=== PATIENT | female | born 1990 | race Two or more races ===

== ENCOUNTER 2018-05-21 20:25 | Emergency (ER) | payer OTHER ==
[2018-05-21 20:32] VITALS: BP 118/62; PULSE 100; TEMP 98.9; BMI 28.3
[2018-05-21] MEDS ORDERED: IBUPROFEN 600 MG TABLET (FP) PO ONE ×2 (20:51→20:55)
--- NOTE | 2018-05-21 20:56 | PDOC ---
History of Present Illness - General Chief Complaint: Sore Throat Stated Complaint: SORE THROAT Time Seen by Provider: 05/21/18 20:43 History Source: Patient Exam Limitations: No Limitations - History of Present Illness Initial Comments: 05/21/18 20:54 27 yr female with c/o sore throat fever one day. neg nvd neg sick contacts. Severity: mild Past History - Past Medical History Allergies/Adverse Reactions: Allergies Allergy/AdvReac Type Severity Reaction Status Date / Time No Known Allergies Allergy Verified 05/21/18 20:58 Home Medications: Ambulatory Orders NK [No Known Home Medication] 10/02/14 Cardiac Disorders: Yes (HEAR MURMUR) COPD: No - Suicide/Smoking/Psychosocial Hx Smoking History: Never smoked Have you smoked in the past 12 months: No Number of Cigarettes Smoked Daily: 0 Hx Alcohol Use: Yes (SOCIAL) Review of Systems - Review of Systems Able to Perform ROS?: Yes Is the patient limited Dominican proficient: No Constitutional: No: Symptoms Reported HEENTM: Yes: Throat Pain *Physical Exam - Vital Signs Last Vital Signs Temp Pulse Resp BP Pulse Ox 98.9 F 100 H 18 118/62 98 05/21/18 20:30 05/21/18 20:30 05/21/18 20:30 05/21/18 20:30 05/21/18 20:30 - Physical Exam General Appearance: Yes: Nourished, Appropriately Dressed HEENT: positive: EOMI, FARTUN, TMs Normal, Pharyngeal Erythema. negative: Tonsillar Exudate, Tonsillar Erythema Neck: positive: Supple. negative: Tender Respiratory/Chest: positive: Lungs Clear, Normal Breath Sounds. negative: Chest Tender Cardiovascular: positive: Regular Rhythm, Regular Rate Gastrointestinal/Abdominal: positive: Normal Bowel Sounds, Soft Musculoskeletal: positive: Normal Inspection Extremity: positive: Normal Capillary Refill, Normal Inspection, Normal Range of Motion Integumentary: positive: Normal Color, Dry, Warm Neurologic: positive: Fully Oriented, Alert, Normal Mood/Affect, Normal Response , Motor Strength 5/5 Moderate Sedation - Procedure Monitoring Vital Signs: Procedure Monitoring Vital Signs Temperature 98.9 F 05/21/18 20:30 Pulse Rate 100 H 05/21/18 20:30 Respiratory Rate 18 05/21/18 20:30 Blood Pressure 118/62 05/21/18 20:30 O2 Sat by Pulse Oximetry (%) 98 05/21/18 20:30 Medical Decision Making - Medical Decision Making 05/21/18 20:54 cc: sore throat , fever today took dayquil earlier. will check for strep motrin now for pain no abd pain neg lymphadenopathy tolerating fluids well 05/21/18 21:13 *DC/Admit/Observation/Transfer Diagnosis at time of Disposition: Pharyngitis Qualifiers: Pharyngitis/tonsillitis etiology: unspecified etiology Qualified Code(s): J02.9 - Acute pharyngitis, unspecified - Discharge Dispostion Disposition: HOME Condition at time of disposition: Good - Referrals - Patient Instructions Printed Discharge Instructions: DI for Viral Pharyngitis Additional Instructions: gargle with warm salt water 4-5 times a day ice pops, gingerale, pleanty of fluids give ibuprofen every 8hrs for pain or fever any throat lozenger of your choice throat sprays for pain tea with honey and lemon follow up with your doctor if any worsening symptoms - Post Discharge Activity
== END 2018-05-21 21:32 | disposition home or self-care (01) ==
LOC: JERFT 20:25
DX: J02.9 Acute pharyngitis, unspecified (principal)
CPT/HCPCS: 87070; 87880; 99281-25

== ENCOUNTER 2018-05-27 12:32 | Emergency (ER) | payer OTHER ==
[2018-05-27 12:41] VITALS: BP 124/60; PULSE 75; TEMP 98.1; BMI 25.7
--- NOTE | 2018-05-27 13:39 | PDOC ---
History of Present Illness - General Chief Complaint: Cold Symptoms Stated Complaint: COLD SYMPTOMS, dx Flu Friday Time Seen by Provider: 05/27/18 13:01 History Source: Patient Exam Limitations: Clinical Condition - History of Present Illness Initial Comments: 05/27/18 13:40 Patient with no significant past medical history present with complaint of five- day history of nasal congestion, runny nose, sinus pain and body aches. Patient denies fever or chills. She was seen 5 days ago for symptoms and emergency room and rapid strep and throat culture done was negative. Patient denies any other symptoms. Timing/Duration: other (5 days) Past History - Past Medical History Allergies/Adverse Reactions: Allergies Allergy/AdvReac Type Severity Reaction Status Date / Time No Known Allergies Allergy Verified 05/27/18 12:41 Home Medications: Ambulatory Orders Ipratropium Como 2 spray NS BID PRN #1 spray 05/27/18 Loratadine 10 mg PO DAILY #10 capsule 05/27/18 Methylprednisolone [Medrol Dose Abran] 4 mg PO ASDIR #21 tablet 05/27/18 Cardiac Disorders: Yes (HEAR MURMUR) COPD: No - Suicide/Smoking/Psychosocial Hx Smoking History: Never smoked Have you smoked in the past 12 months: No Number of Cigarettes Smoked Daily: 0 Information on smoking cessation initiated: No Hx Alcohol Use: No Drug/Substance Use Hx: No Review of Systems - Review of Systems Able to Perform ROS?: Yes Is the patient limited Swazi proficient: No Constitutional: Yes: Malaise. No: Fever HEENTM: Yes: Symptoms Reported, See HPI, Nose Congestion. No: Eye Pain, Blurred Vision, Tearing, Recent change in vision, Double Vision, Cataracts, Ear Pain, Ocular Prothesis, Ear Discharge, Nose Pain, Tinnitus, Nose Bleeding, Hearing Loss, Throat Pain, Throat Swelling, Mouth Pain, Dental Problems, Difficulty Swallowing, Mouth Swelling, Other Respiratory: Yes: Symptoms reported, See HPI, Cough (intermittent). No: Orthopnea, Shortness of Breath, SOB with Exertion, SOB at Rest, Stridor, Wheezing, Productive cough, Hemoptysis, Other Cardiac (ROS): No: Symptoms Reported, See HPI, Chest Pain, Edema, Irregular Heart Rate, Lightheadedness, Palpitations, Syncope, Chest Tightness, Other ABD/GI: No: Constipated, Diarrhea, Nausea, Vomiting All Other Systems: Reviewed and Negative *Physical Exam - Vital Signs Last Vital Signs Temp Pulse Resp BP Pulse Ox 98.1 F 75 19 124/60 96 05/27/18 12:39 05/27/18 12:39 05/27/18 12:39 05/27/18 12:39 05/27/18 12:39 - Physical Exam Comments: 05/27/18 13:42 GENERAL: Well developed, well nourished. Awake and alert. No acute distress. HEENT: Normocephalic, atraumatic. PERRLA, EOMI. No conjunctival pallor. Sclera are non-icteric. Moist mucous membranes. Oropharynx is clear. NECK: Supple. Full ROM. CARDIOVASCULAR: Regular rate and rhythm. No murmurs, rubs, or gallops. Distal pulses are 2+ and symmetric. PULMONARY: No evidence of respiratory distress. Lungs clear to auscultation bilaterally. No wheezing, rales or rhonchi. ABDOMINAL: Soft. Non-tender. Non-distended. No rebound or guarding. No organomegaly. Normoactive bowel sounds. MUSCULOSKELETAL Normal range of motion at all joints. SKIN: Warm and dry. Normal capillary refill. No rashes. No jaundice. NEUROLOGICAL: Alert, awake, appropriate. Gait is normal without ataxia. PSYCHIATRIC: Cooperative. Good eye contact. Appropriate mood General Appearance: Yes: Nourished, Appropriately Dressed. No: Apparent Distress Moderate Sedation - Procedure Monitoring Vital Signs: Procedure Monitoring Vital Signs Temperature 98.1 F 05/27/18 12:39 Pulse Rate 75 05/27/18 12:39 Respiratory Rate 19 05/27/18 12:39 Blood Pressure 124/60 05/27/18 12:39 O2 Sat by Pulse Oximetry (%) 96 05/27/18 12:39 Medical Decision Making - Medical Decision Making 05/27/18 13:42 Patient with no significant past medical history present with complaint of five- day history of URI symptoms and malaise. Patient seen in 5 days ago for symptoms and diagnosed with viral syndrome. Rapid strep test not done today due to patient already having symptoms for 5 days and will not exchange engineer. Patient is stable for outpatient treatment for URI with viral syndrome and PCP follow-up. *DC/Admit/Observation/Transfer Diagnosis at time of Disposition: Malaise URI (upper respiratory infection) Qualifiers: URI type: unspecified viral URI Qualified Code(s): J06.9 - Acute upper respiratory infection, unspecified Sinusitis Qualifiers: Sinusitis location: unspecified location Chronicity: acute Recurrence: non- recurrent Qualified Code(s): J01.90 - Acute sinusitis, unspecified - Discharge Dispostion Disposition: HOME Condition at time of disposition: Stable Decision to Admit order: No - Prescriptions Prescriptions: Ipratropium Como 2 spray NS BID PRN #1 spray PRN Reason: nasal congestion Loratadine 10 mg PO DAILY #10 capsule Methylprednisolone [Medrol Dose Abran] 4 mg PO ASDIR #21 tablet - Referrals Referrals: Halie Putnam [Primary Care Provider] - - Patient Instructions Printed Discharge Instructions: DI for Viral Upper Respiratory Infection -- Adult Additional Instructions: Take medications as prescribed. Increase fluid intake. Follow-up with primary care - Post Discharge Activity
== END 2018-05-27 13:43 | disposition home or self-care (01) ==
LOC: JERFT 12:32
DX: J01.90 Acute sinusitis, unspecified (principal); J06.9 Acute upper respiratory infection, unspecified; R53.81 Other malaise
CPT/HCPCS: 99281-25

== ENCOUNTER 2019-02-19 18:14 | Emergency (ER) | payer OTHER ==
[2019-02-19 18:41] VITALS: BP 113/75; PULSE 89; TEMP 98.3; BMI 29.2
--- NOTE | 2019-02-19 19:29 | PDOC ---
History of Present Illness - General Chief Complaint: Sore Throat Stated Complaint: SORE THROAT Time Seen by Provider: 02/19/19 18:56 History Source: Patient - History of Present Illness Timing/Duration: reports: this morning Past History - Past Medical History Allergies/Adverse Reactions: Allergies Allergy/AdvReac Type Severity Reaction Status Date / Time No Known Allergies Allergy Verified 02/19/19 18:36 Cardiac Disorders: Yes (HEAR MURMUR) COPD: No - Psycho Social/Smoking Cessation Hx Smoking History: Never smoked Have you smoked in the past 12 months: No Number of Cigarettes Smoked Daily: 0 Hx Alcohol Use: No Drug/Substance Use Hx: No Review of Systems - Review of Systems Constitutional: Yes: Fever HEENTM: Yes: Throat Pain. No: Ear Pain, Nose Congestion Respiratory: Yes: Cough. No: Shortness of Breath, Wheezing Cardiac (ROS): No: Chest Pain *Physical Exam - Vital Signs Last Vital Signs Temp Pulse Resp BP Pulse Ox 98.3 F 89 18 113/75 98 02/19/19 18:37 02/19/19 18:37 02/19/19 18:37 02/19/19 18:37 02/19/19 18:37 - Physical Exam General Appearance: Yes: Appropriately Dressed. No: Apparent Distress HEENT: positive: Normal ENT Inspection, TMs Normal, Pharynx Normal. negative: Scleral Icterus (R), Scleral Icterus (L) Neck: positive: Supple. negative: Lymphadenopathy (R), Lymphadenopathy (L) Respiratory/Chest: positive: Respiratory Distress Integumentary: positive: Dry, Warm Neurologic: positive: Fully Oriented, Alert, Normal Mood/Affect Medical Decision Making - Medical Decision Making 02/19/19 19:28 28-year-old female no significant history, here with sore throat with cough and subjective fevers this a.m. No sick contacts see exam Viral URI Exam wnl -Dc w/ supportive tx Discharge - Discharge Information Problems reviewed: Yes Clinical Impression/Diagnosis: URI (upper respiratory infection) Qualifiers: URI type: unspecified viral URI Qualified Code(s): J06.9 - Acute upper respiratory infection, unspecified Condition: Good Disposition: HOME - Follow up/Referral - Patient Discharge Instructions Patient Printed Discharge Instructions: DI for Viral Upper Respiratory Infection -- Adult - Post Discharge Activity Work/Back to School Note: Back to Work
== END 2019-02-19 19:32 | disposition home or self-care (01) ==
LOC: JERFT 18:14
DX: J06.9 Acute upper respiratory infection, unspecified (principal); B97.89 Other viral agents as the cause of diseases classified elsewhere
CPT/HCPCS: 99281-25

== ENCOUNTER 2021-04-16 17:52 | Emergency (ER) | payer OTHER ==
[2021-04-16 18:25] VITALS: BP 126/84; PULSE 97; TEMP 98.6; BMI 28.1
== END 2021-04-16 22:07 | disposition home or self-care (01) ==
LOC: JER 17:52 → JERFT 17:52
DX: J02.9 Acute pharyngitis, unspecified (principal); R51.9 Headache, unspecified; M79.10 Myalgia, unspecified site; Z11.52 Encounter for screening for COVID-19
CPT/HCPCS: 87651; 87804; 99283-25; C9803; U0003; U0005

== ENCOUNTER 2021-04-18 11:42 | Emergency (ER) | payer OTHER ==
[2021-04-18 11:57] VITALS: BP 144/82; TEMP 98.4; BMI 29.9
[2021-04-18 13:49] VITALS: PULSE 90
== END 2021-04-18 13:49 | disposition home or self-care (01) ==
LOC: JER 11:42
DX: R53.83 Other fatigue (principal); R05.1 Acute cough; R09.81 Nasal congestion; Z11.52 Encounter for screening for COVID-19
CPT/HCPCS: 87804; 99283-25; C9803; U0003; U0005

== ENCOUNTER 2021-05-06 09:34 | Emergency (ER) | payer OTHER ==
[2021-05-06 09:54] VITALS: BP 120/65; PULSE 99; TEMP 98.1; BMI 29.5
[2021-05-06 11:16] LABS: HEMATOCRIT 37.3 % (32.4-45.2); HEMOGLOBIN 12.6 GM/dL (10.7-15.3); MCH 28.7 pg (25.7-33.7); MCHC 33.8 g/dl (32.0-36.0); MEAN PLT VOLUME 11.9 fl (7.5-11.1); PLATELET COUNT 171 10^3/uL (134-434); RBC 4.39 M/mm3 (3.60-5.2); WHITE BLOOD COUNT 10.6 K/mm3 (4.0-10.0)
== END 2021-05-06 12:35 | disposition home or self-care (01) ==
LOC: FER 09:34
DX: O20.8 Other hemorrhage in early pregnancy (principal)
CPT/HCPCS: 36415; 76815-TC; 81003; 84702; 84703; 85027; 86850; 86900; 86901; 87086; 99284-25

== ENCOUNTER 2021-11-26 11:54 | Emergency (ER) | payer OTHER ==
[2021-11-26 12:01] VITALS: BP 142/97; PULSE 78; TEMP 98.6; BMI 28.3
[2021-11-26] MEDS ORDERED: ACETAMINOPHEN 325 MG TABLET (FP) PO ONE (12:19)
[2021-11-26] MEDS ORDERED: ACETAMINOPHEN 325 MG TABLET (FP) ONE (12:37)
[2021-11-26 15:28] LABS: THROAT:GRP A STREP NOT DETECTED (NOTDETECTED)
[2021-11-26 16:25] LABS: SARS COV-2 MOLECULAR IN-HOUSE NEGATIVE (NEGATIVE)
== END 2021-11-26 13:13 | disposition home or self-care (01) ==
LOC: FER 11:54
DX: J06.9 Acute upper respiratory infection, unspecified (principal)
CPT/HCPCS: 87651; 99283-25; C9803-CS; U0003; U0005

== ENCOUNTER 2022-04-18 19:15 | Emergency (ER) | payer OTHER ==
[2022-04-18 19:20] VITALS: BP 147/78; PULSE 75; RESP 16; TEMP 98.9; BMI 31.0
[2022-04-18] MEDS ORDERED: ACETAMINOPHEN 325 MG TABLET (FP) PO ONE (20:12)
[2022-04-18] MEDS ORDERED: SUMATRIPTAN SUCCINATE 6 MG/0.5 ML VIAL SQ ONE (20:12)
[2022-04-18] MEDS ORDERED: SUMATRIPTAN SUCCINATE 6 MG/0.5 ML VIAL ONE (20:25)
[2022-04-18] MEDS ORDERED: ACETAMINOPHEN 325 MG TABLET (FP) ONE (20:25)
[2022-04-18 23:16] LABS: HEMATOCRIT 40.3 % (32.4-45.2); HEMOGLOBIN 13.1 G/dL (10.7-15.3); MCH 27.5 pg (25.7-33.7); MCHC 32.5 g/dl (32.0-36.0); MEAN CELL VOLUME 84.9 fl (80-96); MEAN PLT VOLUME 11.1 fl (7.5-11.1); PLATELET COUNT 184.5 10^3/uL (134-434); RBC 4.75 10^6/uL (3.60-5.2); RDW 15.9 % (11.6-15.6); WHITE BLOOD COUNT 16.2 10^3/uL (4.0-10.8)
[2022-04-18 23:25] LABS: INR 1.21 (0.83-1.09); PROTHROMBIN TIME (PATIENT) 13.9 SEC (9.7-13.0)
[2022-04-18 23:30] LABS: PLATELET ESTIMATE ADEQUATE
[2022-04-18 23:31] LABS: ALBUMIN 3.7 g/dl (3.4-5.0); BILIRUBIN,TOTAL 0.7 mg/dl (0.2-1); CREATININE 0.6 mg/dl (0.55-1.3); TOT PROT 7.2 g/dl (6.4-8.2)
== END 2022-04-19 00:03 | disposition home or self-care (01) ==
LOC: FER 19:15
PROC: 3E023GC Introduction of Other Therapeutic Substance into Muscle, Percutaneous Approach (ICD-10-PCS; principal; 2022-04-18)
DX: G93.2 Benign intracranial hypertension (principal)
CPT/HCPCS: 36415; 70450-TC; 70486-TC; 80053; 81003; 81025; 84703; 85027; 85610; 99284-25

== ENCOUNTER 2023-01-20 20:34 | Emergency (ER) | payer OTHER ==
[2023-01-20 20:44] VITALS: BP 122/74; PULSE 91; RESP 18; TEMP 98.7; BMI 29.5
== END 2023-01-21 00:27 | disposition left against medical advice (07) ==
LOC: JERFT 20:34
DX: R19.7 Diarrhea, unspecified (principal); M79.10 Myalgia, unspecified site
CPT/HCPCS: 0241U-QW; 99281-25